=== PATIENT | female | born 1995 | race Caucasian/White ===

== ENCOUNTER → 2017-03-03 | Outpatient (CLI) | payer SELFPAY ==
[~2017-03-03] MED LIST: ADDERALL20 M1 PO; NUVARING VAGIN1 EACH
--- NOTE | ~2017-03-03 | CR97 ---
[facility] A Service of [facility] & [facility] RADIOLOGY TEXT RESULTS PATIENT: MAGED JOSEPH LOCATION: [facility] : [birth year] UNIT #: [id number] AGE: [address]: Sandeep Vanessa MD SEX: F ORDER DR: [id number] [facility] [address] [place], [place] [address] [id number] O MR#: [id number] Acc #: [id number] NAME: MAGED JOSEPH : 1995 SEX: F STUDY DATE/TIME: 03/03/2017 8:29 UNIT: [facility] ROOM: STUDY DESCRIPTION: CR Esophagram Attending Physician: Sandeep Vanessa M.D. Referring Physician: Sandeep Vanessa M.D. Ordering Physician: Sandeep Vanessa M.D. Primary Care Physician: Raisa Lopez M.D. MEDICAL IMAGING REPORT This report is preliminary unless electronic signature is present EXAM Barium esophagram HISTORY Preop Lap-Band surgery. FINDINGS Under fluoroscopic control barium was administered orally. Swallowing was normal. The esophagus was of normal course, caliber, mucosal pattern and distensibility. Total of 18 images. Total fluoroscopy time was 0.9 minutes. CONCLUSION Normal. Dictated by... Sandeep Price M.D. THIS IS AN ELECTRONICALLY VERIFIED REPORT Sandeep Price M.D. at 03/03/2017 4:40 PM Martin TD: 03/03/2017 11:24 JOB #: [id number] MEDICAL IMAGING REPORT Page 1 of 1 COPY
--- NOTE | ~2017-03-03 | CR63 ---
[facility] A Service of [facility] & [facility] RADIOLOGY TEXT RESULTS PATIENT: MAGED JOSEPH LOCATION: [facility] : [birth year] UNIT #: [id number] AGE: [address]: Sandeep Vanessa MD SEX: F ORDER DR: [id number] [facility] [address] [place], [place] [address] [id number] O MR#: [id number] Acc #: [id number] NAME: MAGED JOSEPH : 1995 SEX: F STUDY DATE/TIME: 03/03/2017 8:07 UNIT: [facility] ROOM: STUDY DESCRIPTION: CR Chest 2 View Attending Physician: Sandeep Vanessa M.D. Referring Physician: Sandeep Vanessa M.D. Ordering Physician: Sandeep Vanessa M.D. Primary Care Physician: Raisa Lopez M.D. MEDICAL IMAGING REPORT This report is preliminary unless electronic signature is present EXAM Chest PA and lateral, 03/03/2017 HISTORY Shortness breath on exertion today. Morbid obesity, preop laparoscopic gastric banding. FINDINGS PA and lateral examination of the chest upright shows a good expansion of the parenchyma with a normal distribution of the pulmonary vascularity. There is no indication of congestion, effusion, infiltrate, tumor, or nodular density. The pleural reflections and diaphragmatic contours are normal. The cardiac silhouette and mediastinal anatomy is within normal limits. IMPRESSION Normal chest. Dictated by... Mani Parry M.D. THIS IS AN ELECTRONICALLY VERIFIED REPORT Mani Parry M.D. at 03/03/2017 4:35 PM ANOOP/jeremy TD: 03/03/2017 09:15 JOB #: [id number] MEDICAL IMAGING REPORT Page 1 of 1 COPY
--- NOTE | ~2017-03-03 | EKG ---
PATIENT: MAGED JOSEPH UNIT #: [id number] Ventricular Rate: 74 BPM Atrial Rate: 74 BPM P-R Interval: 162 ms QRS Duration: 80 ms Q-T Interval: 378 ms QTC Calculation(Bezet): 419 ms P [place]: 39 degrees Calculated R [place]: 46 degrees Calculated T [place]: 28 degrees Diagnosis Line: Normal sinus rhythm Diagnosis Line: Low voltage QRS Diagnosis Line: Poor R wave progression questionable lead position Diagnosis Line: or body habitus Otherwise normal ECG Diagnosis Line: No previous ECGs available Diagnosis Line: Confirmed by ELLEN MUNOZ MD ([id number]) on 03/03/2017 Diagnosis Line: 8:10:20 PM INTERPRETING MD: ALEXANDER COX
[2017-03-03 09:22] LABS: HEMATOCRIT 41.3 % (35.0-45.0); HEMOGLOBIN 13.9 gm/dL (12.0-16.0); MEAN CELL VOLUME 87.7 FL (83-96); MEAN CORPUSCULAR HEMOGLOBIN 29.5 PG (28-34); MEAN CORPUSCULAR HGB CONC 33.6 g/dL (30-36); MEAN PLATELET VOLUME 8.8 FL (6.5-11.5); RED BLOOD COUNT 4.71 X10e (3.90-5.30); RED CELL DISTRIBUTION WIDTH 13.2 % (11.0-15.5); WHITE BLOOD COUNT 7.6 X10e3 (4.0-10.5)
[2017-03-03 10:22] LABS: ALBUMIN SERUM 3.8 g/dL (3.5-5.0); BILIRUBIN,TOTAL 0.4 mg/dL (0.2-2.0); BUN/CREATININE RATIO 17.5; CALCIUM SERUM 9.4 mg/dL (8.4-10.2); CREATININE SERUM 0.8 mg/dL (0.6-1.4); POTASSIUM 4.3 mmol/L (3.5-5.1); PROTEIN TOTAL SERUM 6.5 g/dL (6.0-8.3)
== END | disposition home or self-care (01) ==
LOC: CRAD 07:58 → EDSEX 07:58 → CRAD 08:30 → CAMB 09:00
PROVIDERS: Surgery
DX: Z01.818 Encounter for other preprocedural examination (principal); E66.01 Morbid (severe) obesity due to excess calories; R94.39 Abnormal result of other cardiovascular function study
CPT/HCPCS: 36415; 71020; 74220; 80053; 80061; 84443; 85027; 93005

== ENCOUNTER → 2017-03-15 | Day surgery (SDC) | payer SELFPAY ==
--- NOTE | ~2017-03-15 | OR ---
Unit #: [id number] #: [id number] Patient: MAGED JOSEPH [id number] [address] [address] [id number] O MR#: [id number] NAME: MAGED JOSEPH ROOM: Date of Procedure: 03/15/2017 Admission Date: 03/15/2017 Surgeon: Sandeep Vanessa M.D. : 1995 Attending Physician: Sandeep Vanessa M.D. Primary Care Physician: Raisa Lopez M.D. OPERATIVE REPORT PREOPERATIVE DIAGNOSIS Chronic morbid obesity, body mass index of 37. POSTOPERATIVE DIAGNOSIS 1. Chronic morbid obesity, body mass index of 37. 2. Paraesophageal hiatal hernia. PROCEDURES PERFORMED 1. Laparoscopic adjustable gastric band. 2. Laparoscopic paraesophageal hiatal hernia repair. ASSISTANT Frankie Corral M.D. ANESTHESIA General endotracheal anesthesia. ESTIMATED BLOOD LOSS Minimal. IV FLUIDS 800 crystalloid. COMPLICATIONS None. INDICATIONS FOR PROCEDURE The patient is a young lady, who presents with chronic morbid obesity. DESCRIPTION OF PROCEDURE The patient was taken to the operating room and placed in supine position. General anesthesia was induced. The abdomen was prepped and draped. A 3-cm incision was then made left of the midline. A 10-mm Visiport was then placed intraabdominal under direct vision. The abdomen was insufflated to 15 mmHg with CO2. The patient was then placed in a steep reversed Trendelenburg. General inspection of the abdomen revealed what appeared to be a paraesophageal hernia. This was identified with a defect at the diaphragm using anterior palpation with the instrument. We then made a small incision in the subxiphoid region. A Debbie liver retractor was then placed intraabdominal and used to retract the left lobe of the liver upward to further expose the paraesophageal hernia and GE junction. I then placed a 5-mm port in the right upper quadrant, a 10-mm Unit #: [id number] #: [id number] Patient: MAGED JOSEPH port in the left upper quadrant, and another 5-mm port in the left lower quadrant. The stomach was retracted medial and downward. Upon retracting the stomach, we took down the paraesophageal ligament, exposing the right and left adelso at the paraesophageal hernia. Any hernia sac was reduced. We then repaired the paraesophageal hernia using interrupted #0 Ethibond sutures in a [id number]-flvuy type fashion. This formed a snug repair to the anterior esophagus. We then retracted the stomach medially and further exposed the angle of His using Bovie electrocautery. The stomach was then retracted laterally. We then took down the hepatogastric ligament with Bovie electrocautery. This exposed the right adelso. Using blunt dissection, I created a retrogastric tunnel from this point to the angle of His. The band was then placed intraabdominal through the 10-mm port site. This was then brought through the retrogastric tunnel in a pars flaccida technique. The band was then closed anteriorly to form a 20-mL to 25-mL anterior gastric pouch. The fundus was then secured to the anterior pouch to prevent movement around the stomach using two interrupted #0 Ethibond sutures. A third suture was then used as a gathering stitch from the lesser curve to the anterior stomach, gathering and imbricating the remaining fundus of the stomach. The tubing was then brought out through the midline 10-mm port site. All ports and the Debbie liver retractor were removed under direct vision with no evidence of abdominal hemorrhage. A polypropylene mesh was then secured to the posterior face of the laparoscopic band port. This was secured using #0 Ethibond suture. This was then cut to shape. The port was then connected to the tubing and placed into a subcutaneous pocket just anterior to the rectus sheath. Its position was then confirmed. All tubing was then placed intraabdominal. The wounds were then closed with interrupted 4-0 Vicryl. The patient tolerated the procedure well and was sent to the recovery room in good condition. Dictated by... Hasmukh Madrigal/sylwia TD: 03/15/2017 22:36 JOB #: [id number] OPERATIVE REPORT Page 1 of 1 X Sandeep Vanessa MD X PROCEDURE OPERATIVE NOTE
--- NOTE | ~2017-03-15 | CR7 ---
[facility] A Service of [facility] & [facility] RADIOLOGY TEXT RESULTS PATIENT: MAGED JSOEPH LOCATION: [facility] : [birth year] UNIT #: [id number] AGE: [address]: Sandeep Vanessa MD SEX: F ORDER DR: [id number] [facility] [address] [place], [place] [address] [id number] O MR#: [id number] Acc #: [id number] NAME: MAGED JOSEPH : 1995 SEX: F STUDY DATE/TIME: 03/15/2017 8:15 UNIT: [facility] ROOM: STUDY DESCRIPTION: CR Abdomen Single AP View Attending Physician: Sandeep Vanessa M.D. Ordering Physician: Sandeep Vanessa M.D. Primary Care Physician: Raisa Lopez M.D. MEDICAL IMAGING REPORT This report is preliminary unless electronic signature is present EXAM AP abdomen INDICATIONS Post lap-band placement. Initial exam. No comparisons. FINDINGS Lap-band in place with phi angle of approximately 60 degrees. Remainder unremarkable. IMPRESSION Lap-band in place. Dictated by... Gómez Yanez M.D. THIS IS AN ELECTRONICALLY VERIFIED REPORT Gómez Yanez M.D. at 03/17/2017 9:07 AM ROMI/gustavo TD: 03/15/2017 10:05 JOB #: [id number] MEDICAL IMAGING REPORT Page 1 of 1 COPY
== END | disposition home or self-care (01) ==
LOC: CSUR 06:02 → EDSEX 08:30 → CSUR 08:30
DX: E66.01 Morbid (severe) obesity due to excess calories (principal); K44.9 Diaphragmatic hernia without obstruction or gangrene; Z68.37 Body mass index [BMI] 37.0-37.9, adult; Z72.4 Inappropriate diet and eating habits; Z79.899 Other long term (current) drug therapy
CPT/HCPCS: 74000; 84703; C1781; J0330; J0690; J1650; J1885; J2250; J2405; J2710; J3010